=== PATIENT | male | born 1960 | race Hispanic/Latino ===

== ENCOUNTER 2022-07-19 10:21 | Emergency (ER) | payer OTHER ==
[~2022-07-19] VITALS: Ht 175.3 cm; Wt 133.8 kg
[2022-07-19 10:24] VITALS: BP 181/97
[2022-07-19] MEDS ORDERED: NAPR375T6 PO (11:27)
== END 2022-07-19 11:46 | disposition home or self-care (01) ==
LOC: EDH 10:21
DX: S52.592A Other fractures of lower end of left radius, initial encounter for closed fracture (principal); E11.9 Type 2 diabetes mellitus without complications; I10 Essential (primary) hypertension; W19.XXXA Unspecified fall, initial encounter; Y93.89 Activity, other specified; Y92.89 Other specified places as the place of occurrence of the external cause; Y99.8 Other external cause status
CPT/HCPCS: 73100